=== PATIENT | male | born 1960 | race Two or more races ===

== ENCOUNTER 2018-05-20 11:09 | Emergency (ER) | payer BC, OTHER ==
[~2018-05-20] VITALS: Ht 160 cm; Wt 81.6 kg
--- NOTE | 2018-05-20 11:25 | NUR ---
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 STATES PAIN LEVEL 5/10, BUT TOLERABLE. PT IS AOX4, AMBULATORY, VSS, RR EVEN AND UNLABORED. NO ACUTE DISTRESS NOTED. 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 UPON REMOVAL, CUT IS CLEAN, STILL BLEEDING. READY FOR EVAL.
[2018-05-20] MEDS ORDERED: LIDOCAINE 1%-EPI 1:100,000 50 ML VIAL IJ STA (11:34)
[2018-05-20] MEDS ORDERED: LIDOCAINE 1%-EPI 1:100,000 20 ML VIAL ONE (11:46)
[2018-05-20] MEDS ORDERED: TDAP [DIPH/PERTUSSIS/TET] 0.5 ML VIAL IM ONE ×2 (11:47→12:00)
--- NOTE | 2018-05-20 11:58 | NUR ---
[facility] OWENS AT BEDSIDE FOR LAC SUTURE
--- NOTE | 2018-05-20 12:40 | NUR ---
Patient discharged to home in stable condition. Written and verbal after care instructions given. Patient verbalizes understanding of instruction.
[2018-05-20 12:54] VITALS: BP 125/89
== END 2018-05-20 12:43 | disposition home or self-care (01) ==
LOC: ER 11:12
DX: S51.812A Laceration without foreign body of left forearm, initial encounter (principal); W26.8XXA Contact with other sharp object(s), not elsewhere classified, initial encounter; Y93.89 Activity, other specified; Y92.89 Other specified places as the place of occurrence of the external cause; Y99.8 Other external cause status
CPT/HCPCS: 90715; A6403; J3490